=== PATIENT | female | born 1960 | race Caucasian/White ===

== ENCOUNTER 2018-03-08 16:35 | Emergency (ER) | payer OTHER ==
[2018-03-08] MEDS ORDERED: cefTRIAXone 2 GM in Sodium Chloride 0.9% 100 ML IV ONE (17:08)
--- NOTE | 2018-03-08 17:14 | EDM.PDOC ---
ED HPI GENERAL MEDICAL PROBLEM - General Chief Complaint: General Stated Complaint: FACIAL PAIN Time Seen by Provider: 03/08/18 17:05 Source of Information: Reports: Patient, Family (parents) History Limitations: Reports: No Limitations - History of Present Illness INITIAL COMMENTS - FREE TEXT/NARRATIVE: 57-year-old female presents to the ED with left hemifacial pain. Started 2 days ago with pain up underneath her permanent denture or at least partial plate of the left upper maxilla. Since then pain is gradually increasing and now left nav-face is become more swollen and painful. She was seen in the walk-in clinic earlier this morning and placed on clindamycin 450 mg 3 times a day and Tylenol No. 3. She received Toradol shot for pain relief with good relief earlier today. Onset: Gradual (Over the last 3 days) Onset Date: 03/05/18 Duration: Day(s): Location: Reports: Face (Left nav-face left maxilla.) Quality: Reports: Ache, Burning, Throbbing Severity: Moderate (Rates pain as 7 or 8 out of 9 out of 10.) Improves with: Reports: None, Medication (Toradol shot IM this morning helped with the pain) Worsens with: Reports: Other (Touch her trying to chew on that side.) Context: Denies: Activity, Exercise, Lifting, Sick Contact, Trauma, Other Associated Symptoms: Reports: Nausea/Vomiting (Mild nausea). 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: Other (see below) (Received Toradol 60 mg IM at the clinic earlier this morning.) Left Face Pain Score (Numeric/FACES): 9 - Related Data Allergies Allergy/AdvReac Type Severity Reaction Status Date / Time amoxicillin [From Augmentin] Allergy Rash Verified 03/08/18 16:52 clavulanic acid Allergy Rash Verified 03/08/18 16:52 [From Augmentin] Home Meds: Home Meds Acetaminophen with Codeine [Tylenol with Codeine #3 Tablet] 1 tab PO Q6H PRN 09/25 [History] Clindamycin HCl [Cleocin HCl] 450 mg PO TID 03/08/18 [History] Doxycycline [Vibramycin] 100 mg PO BID #20 tab 03/08/18 [Rx] Ondansetron HCl [Zofran] 4 mg PO Q6H PRN 03/08/18 [History] amLODIPine [Norvasc] 5 mg PO DAILY 03/08/18 [History] oxyCODONE HCl/Acetaminophen [Percocet 5-325 mg Tablet] 1 - 2 each PO Q4H PRN # 18 tablet 03/08/18 [Rx] Past Medical History Cardiovascular History: Reports: Hypertension Social & Family History - Tobacco Use Smoking Status *Q: Never Smoker - Caffeine Use Caffeine Use: Reports: Coffee, Tea - Recreational Drug Use Recreational Drug Use: No - Living Situation & Occupation Living situation: Reports: Single Occupation: Employed ED ROS GENERAL - Review of Systems Review Of Systems: See Below Constitutional: Reports: Chills, Malaise (Starting just now.), Fatigue, Decreased Appetite. Denies: Fever HEENT: Reports: Ear Pain (Pain is referred to her left ear), Glasses, Nose Pain , Other. Denies: Contact Lenses, Sinus Problem, Throat Pain, Throat Swelling Respiratory: Reports: No Symptoms (Left nav-facial swelling and pain) Cardiovascular: Reports: Blood Pressure Problem Endocrine: Reports: No Symptoms GI/Abdominal: Reports: Nausea : Reports: No Symptoms Musculoskeletal: Reports: No Symptoms Skin: Reports: Other (Swelling and erythema left nav-face) Neurological: Reports: No Symptoms Psychiatric: Reports: No Symptoms Hematologic/Lymphatic: Reports: No Symptoms ED EXAM, GENERAL - Physical Exam Exam: See Below Exam Limited By: No Limitations General Appearance: Alert, Mild Distress, Other (Obvious swelling left nav- face with erythema and increased warmth to palpation) Eye Exam: Bilateral Eye: Normal Inspection, PERRL Ears: Normal TMs Throat/Mouth: Normal Inspection, Normal Oropharynx, Other (There is pain to palpation with a tongue blade to her dental plate. She's not able to remove it is apparently it's a permanent structure anchored to a crowned tooth. He also has a dental implant as one of the teeth in the plate.) Head: Facial Swelling, Facial Tenderness (She has left hemifacial swelling and erythema and tenderness over the maxillary sinus.), Sinus Tenderness (Left maxillary sinus.) Neck: Normal Inspection, Supple, Non-Tender, Full Range of Motion. No: Lymphadenopathy (L), Lymphadenopathy (R) Respiratory/Chest: No Respiratory Distress, Lungs Clear, Normal Breath Sounds, No Accessory Muscle Use, Chest Non-Tender Cardiovascular: Regular Rate, Rhythm, No Edema, No Gallop, No Rub, Other (He is currently hypertensive at the time of exam.) Course - Vital Signs Last Recorded V/S: Last Vital Signs Temp 37.6 C 03/08/18 17:54 Pulse 88 03/08/18 17:18 Resp 16 03/08/18 17:18 BP 166/91 H 03/08/18 17:18 Pulse Ox 96 03/08/18 17:18 - Orders/Labs/Meds Orders: Active Orders 24 hr Category Date Time Status Maxillofacial w/o CM [Max Facial Sinus wo Cont] [CT] Exams 03/08/18 17:08 Taken Stat Dextrose 5%-0.9% NaCl [Dextrose 5%-Normal Saline] 1,000 Med 03/08/18 17:15 Active ml IV ASDIRECTED Ketorolac [Toradol] Med 03/08/18 17:30 Active 30 mg IVPUSH ONETIME Medication Orders Dextrose/Sodium Chloride (Dextrose 5%-Normal Saline) 1,000 mls @ 999 mls/hr IV ASDIRECTED MANISH Last Admin: 03/08/18 17:30 Dose: 999 mls/hr Ketorolac Tromethamine (Toradol) 30 mg IVPUSH ONETIME MANISH Last Admin: 03/08/18 17:46 Dose: 30 mg Labs: Laboratory Tests 03/08/18 03/08/18 Range/Units 17:24 17:24 WBC 8.40 (3.98-10.04) K/mm3 RBC 4.89 (3.98-5.22) M/mm3 Hgb 13.8 (11.2-15.7) gm/L Hct 41.1 (34.1-44.9) % MCV 84.0 (79.4-94.8) fl MCH 28.2 (25.6-32.2) pg MCHC 33.6 (32.2-35.5) g/dl RDW Std Deviation 39.2 (36.4-46.3) fL Plt Count 265 (182-369) K/mm3 MPV 9.9 (9.4-12.3) fl Neutrophils % (Manual) 67 H (40-60) % Band Neutrophils % 0 (0-10) % Lymphocytes % (Manual) 19 L (20-40) % Atypical Lymphs % 0 % Monocytes % (Manual) 6 (2-10) % Eosinophils % (Manual) 0 L (0.7-5.8) % Basophils % (Manual) 8 H (0.1-1.2) Platelet Estimate Adequate RBC Morph Comment Normal C-Reactive Protein 6.9 H* (<1.0) mg/dL Meds: Medications Generic Name Dose Route Start Last Admin Trade Name Freq PRN Reason Stop Dose Admin Dextrose/Sodium Chloride 1,000 mls @ 999 mls/hr 03/08/18 17:15 03/08/18 17:30 Dextrose 5%-Normal Saline IV 999 mls/hr ASDIRECTED MANISH Administration Ketorolac Tromethamine 30 mg 03/08/18 17:30 03/08/18 17:46 Toradol IVPUSH 30 mg ONETIME MANISH Administration Discontinued Medications Generic Name Dose Route Start Last Admin Trade Name Freq PRN Reason Stop Dose Admin Acetaminophen 975 mg 03/08/18 17:42 03/08/18 17:54 Tylenol PO 03/08/18 17:43 975 mg NOW ONE Administration Hydromorphone HCl 0.5 mg 03/08/18 17:29 03/08/18 17:44 Dilaudid IVPUSH 03/08/18 17:30 0.5 mg ONETIME ONE Administration Ceftriaxone Sodium 2 gm/ 100 mls @ 100 mls/hr 03/08/18 17:08 03/08/18 17:30 Sodium Chloride IV 03/08/18 18:07 100 mls/hr ONETIME ONE Administration Ondansetron HCl 4 mg 03/08/18 17:29 03/08/18 17:48 Zofran IVPUSH 03/08/18 17:30 4 mg ONETIME ONE Administration - Radiology Interpretation Free Text/Narrative:: 57-year-old female presents to the ED with gradually worsening pain left upper maxilla area. She has a permanent partial plate in this area anchored around a dental implant and a molar tooth that is a crown. Somewhere within this is a dental infection that is spreading up into her left maxilla and now left hemifacial swelling is developing due to cellulitis. I cannot visualize which area is causing the infection although I would be suspicious that the crown is loosened on the crown tooth and has acted as a portal of entry for infection. She was seen in the walk-in clinic and placed on clindamycin 450 mg 3 times a day earlier today however the face has become much more swollen and painful over the last 6 hours. She was given Tylenol 3 which is not helping the pain at all. She has an associated mild nausea. She started to feel like she's developing a fever with some chills. Plan IV Rocephin 2 g IV. Will give Toradol 30 mg IV with Dilaudid 0.5 mg IV and Zofran 4 mg IV for acute pain relief. CT of the maxillofacial sinuses will be done as well to see if we can find a portal of entry for this infection. - Re-Assessments/Exams Free Text/Narrative Re-Assessment/Exam: 03/08/18 17:42 patient is becoming more febrile. We'll give her Tylenol 975 mg by mouth for fever relief. 03/08/18 17:56 CT of the maxillofacial bones reveals extensive maxillary sinusitis with about 75% of the sinus occluded with purulent material. It's unclear whether or not a dental infection as the cause of this. The there are roots traveling up to the floor of the sinus. I do not see any evidence of recurrent infection however. Therefore current treatment plan will be continued. I will add doxycycline 100 mg twice daily to her treatment plan as well as continuing the gentamicin 3 times daily for 7 days. I will also change her pain medicine to Percocet 5/325 milligrams strength one or 2 every 4-6 hours 16 tablets. 03/08/18 19:08 feeling much improved much less pain. She has completed her 2 g of Rocephin intravenously. She will therefore be discharged at this time. Advised only want from the clindamycin for 50 mg 3 times daily for 7 days not 10 so that it minimizes the chance of developing C. difficile enteritis. I'm also going to place her on doxycycline 100 mg twice daily for 10 days this will be through the [employer] machine. She will also discontinue her Tylenol No. 3 since it is not effective in terms of controlling her pain. It will be replaced with Percocet 5/325 milligrams tabs one or 2 every 4-6 hours for pain relief as needed. She can also use Motrin 600 mg every 6 hours for pain relief and reduction of inflammation. CT report. Again it's unclear whether or not dental infection initiated the sinus disease and the cellulitis of her left nav-face. Departure - Departure Time of Disposition: 19:12 Disposition: Home, Self-Care 01 Condition: Fair Clinical Impression: Cellulitis of face Maxillary sinusitis, acute Qualifiers: Recurrence: non-recurrent Qualified Code(s): J01.00 - Acute maxillary sinusitis , unspecified - Discharge Information Prescriptions: Doxycycline [Vibramycin] 100 mg PO BID #20 tab oxyCODONE HCl/Acetaminophen [Percocet 5-325 mg Tablet] 1 - 2 each PO Q4H PRN # 18 tablet PRN Reason: pain relief. Instructions: Cellulitis, Adult, Sinusitis, Adult, [id number] Referrals: PCP,Not In Area [Primary Care Provider] - Forms: ED Department Discharge Additional Instructions: Evaluation in the emergency room today in regards to worsening infection left side of face. Examination reveals cellulitis or spreading infection into the left facial cheek. The exact source of this infection is unclear. Since she started to notice dental pain initially it is suspect they may well be dental in origin. Of the face reveals significant maxillary sinusitis on the left side however which also could cause this cellulitis of the face. Could start by making your teeth hurt. In the ED were treated with intravenous fluids and pain medication Dilaudid 0.5 mg with Toradol 30 mg and antinausea medication Zofran 4 mg IV. You're also given initial dose of intravenous antibiotic: Rocephin 2 g to start to bring this infection under rapid control. Treatment at home is to continue the clindamycin for 50 mg 3 times daily for 7 days only. Hoping to eliminate the possibility of developing Clostridium difficile infection of the bowel which can often be associated with this antibiotic. However it is of excellent antibiotic to bring that the facial infection and potential dental infection under control. I'm also going to add a second antibiotic called doxycycline 100 mg twice daily for the next 10 days with the first tablet to be taken tonight. Discontinue the Tylenol No. 3 medication since it is been in effective in terms of controlling your pain. Replace it with Percocet 5/325 milligrams one or 2 every 4 hours as needed for pain relief. You can also use Motrin 600 mg every 6 hours as needed for fever and pain and inflammation reduction. The 2 medicines can be used together without any adverse effects. You should expect marked improvement over the next 48-72 hours with facial swelling and redness and pain improving dramatically like 90%. He will need to follow-up with her dentist when she get back home so that a panoramic x-ray can be done and he can make sure that there is no infection under your crown or dental infection that caused this problem. - My Orders Last 24 Hours: My Active Orders 03/08/18 17:08 Maxillofacial w/o CM [Max Facial Sinus wo Cont] [CT] Stat 03/08/18 17:15 Dextrose 5%-0.9% NaCl [Dextrose 5%-Normal Saline] 1,000 ml IV ASDIRECTED 03/08/18 17:30 Ketorolac [Toradol] 30 mg IVPUSH ONETIME - Assessment/Plan Last 24 Hours: My Active Orders 03/08/18 17:08 Maxillofacial w/o CM [Max Facial Sinus wo Cont] [CT] Stat 03/08/18 17:15 Dextrose 5%-0.9% NaCl [Dextrose 5%-Normal Saline] 1,000 ml IV ASDIRECTED 03/08/18 17:30 Ketorolac [Toradol] 30 mg IVPUSH ONETIME
[2018-03-08] MEDS ORDERED: Dextrose 5%-0.9% NaCl 1,000 ML IV SCH (17:15)
[2018-03-08] MEDS ORDERED: Ondansetron 4 MG/2 ML SDV IVPUSH ONE (17:29)
[2018-03-08] MEDS ORDERED: HYDROmorphone 0.5 MG/0.5 ML SYRINGE IVPUSH ONE (17:29)
[2018-03-08] MEDS ORDERED: Ketorolac 30 MG/ML SDV IVPUSH SCH (17:30)
[2018-03-08] MEDS ORDERED: Acetaminophen 325 MG Tab PO ONE (17:42)
--- NOTE | 2018-03-09 08:29 | CT ---
Maxillofacial CT Technique: Multiple axial sections were obtained from below the mandible superiorly through the frontal sinus. Intravenous contrast was not utilized. Reconstructed coronal and sagittal images were obtained. Findings: Moderate mucosal thickening is seen within the left maxillary sinus. Other sinuses are clear. No air-fluid levels are seen within the paranasal sinuses. Scattered degenerative change is seen within the apophyseal joints within the cervical spine which is most prominent at C2-C3 on the right side. Scattered lymph nodes are seen within the neck which are believed to be incidental. Small nodule is identified within the left side of the parotid salivary glands which measures approximately 6 mm. Small lymph node is seen within the right parotid salivary gland. Submandibular salivary glands appear within normal limits. Mild inflammatory change is seen within the soft tissues around the platysmas muscle within the left lower cheek. Prevertebral soft tissues are within normal limits. Epiglottis is within normal limits. Impression: 1. Small nodule within the left parotid salivary gland with differential including a small parotid tumor versus slightly enlarged lymph node. Left parotid ultrasound could be obtained to see if this finding can be seen by that modality to allow for follow-up. 2. Soft tissue swelling within the lower left cheek around the platysmas muscle. 3. Chronic appearing mucosal thickening within the left maxillary sinus. Diagnostic code #9 I agree with preliminary report from [facility], finalized at 03/08/18, 7:22 PM Central Time
== END 2018-03-08 19:37 | disposition home or self-care (01) ==
LOC: JD.ED 16:35
DX: L03.211 Cellulitis of face (principal); J01.00 Acute maxillary sinusitis, unspecified; I10 Essential (primary) hypertension; Z88.1 Allergy status to other antibiotic agents; Z79.899 Other long term (current) drug therapy
CPT/HCPCS: 36415; 70486; 85007; 85027; 86140; 96365; 96375; 99284; A9270; J0696; J1170; J1885; J2405; J7030; J7042

== ENCOUNTER 2018-03-09 09:13 | Emergency (ER) | payer OTHER ==
[2018-03-09] MEDS ORDERED: Sodium Chloride 0.9% 10 ML Syringe FLUSH PRN (09:53)
[2018-03-09] MEDS ORDERED: Metoclopramide 10 MG/2 ML SDV IVPUSH ONE (09:54)
[2018-03-09] MEDS ORDERED: cefTRIAXone 2 GM in Sodium Chloride 0.9% 100 ML IV ONE (09:54)
[2018-03-09] MEDS ORDERED: HYDROmorphone 0.5 MG/0.5 ML SYRINGE IVPUSH ONE ×2 (09:54→11:41)
[2018-03-09] MEDS ORDERED: Sodium Chloride 0.9% 1,000 ML IV SCH (10:00)
--- NOTE | 2018-03-09 10:18 | EDM.PDOC ---
<Gagan Finch - Last Filed: 03/09/18 10:20> ED HPI GENERAL MEDICAL PROBLEM - General Chief Complaint: Gastrointestinal Problem Stated Complaint: VOMITING Time Seen by Provider: 03/09/18 09:29 Source of Information: Reports: Patient, Family History Limitations: Reports: No Limitations - History of Present Illness INITIAL COMMENTS - FREE TEXT/NARRATIVE: Patient is a 57 year-old female who is presents to the ED with complaints of facial pain, nausea and vomiting. Patient was seen last evening in the ED for left facial sinusitis cellulitis and associated pain. She was given an initial dose of Rocephin 2 g and then started on clindamycin 50 mg three times daily for 7 days and doxycycline 100 mg twice daily for 10 days. For her facial pain she was treated with Dilaudid 0.5 mg and Toradol 30 mg and had good relief. However once she went back to the hotel, she states the pain medication wore off and felt like the percocet did not help. She reports feeling nauseas around midnight and tried taking the zofran but did not get relief. She has vomited a few times this morning already. She states that she cannot keep anything down and therefore not able to get her medication. She reports maxillary pain that extends to her jaw line and left ear. Unable to open mouth completely. Denies recent illness or fever. Left Face Pain Score (Numeric/FACES): 5 - Related Data Allergies Allergy/AdvReac Type Severity Reaction Status Date / Time amoxicillin [From Augmentin] Allergy Rash Verified 03/09/18 09:21 clavulanic acid Allergy Rash Verified 03/09/18 09:21 [From Augmentin] Home Meds: Home Meds Acetaminophen with Codeine [Tylenol with Codeine #3 Tablet] 1 tab PO Q6H PRN 09/25 [History] Clindamycin HCl [Cleocin HCl] 450 mg PO TID 03/08/18 [History] Doxycycline [Vibramycin] 100 mg PO BID #20 tab 03/08/18 [Rx] Ondansetron HCl [Zofran] 4 mg PO Q6H PRN 03/08/18 [History] amLODIPine [Norvasc] 5 mg PO DAILY 03/08/18 [History] oxyCODONE HCl/Acetaminophen [Percocet 5-325 mg Tablet] 1 - 2 each PO Q4H PRN # 18 tablet 03/08/18 [Rx] Past Medical History - Past Health History Medical/Surgical History: Denies Medical/Surgical History HEENT History: Reports: Sinusitis Cardiovascular History: Reports: Hypertension Social & Family History - Tobacco Use Smoking Status *Q: Never Smoker - Caffeine Use Caffeine Use: Reports: Coffee, Tea - Living Situation & Occupation Living situation: Reports: Single Occupation: Employed ED ROS GENERAL - Review of Systems Constitutional: Reports: Decreased Appetite. Denies: Fever, Chills, Fatigue HEENT: Reports: Ear Pain, Sinus Problem Respiratory: Denies: Shortness of Breath, Wheezing, Cough Cardiovascular: Denies: Chest Pain, Dyspnea on Exertion, Lightheadedness GI/Abdominal: Reports: Abdominal Pain, Decreased Appetite, Nausea, Vomiting Psychiatric: Reports: No Symptoms ED EXAM, GI/ABD - Physical Exam Exam Limited By: No Limitations General Appearance: Alert, WD/WN, No Apparent Distress Head: Atraumatic, Facial Swelling, Facial Tenderness Respiratory/Chest: No Respiratory Distress, Lungs Clear, Normal Breath Sounds, No Accessory Muscle Use, Respiratory Distress. No: Crackles, Rales, Wheezing Cardiovascular: Regular Rate, Rhythm, No Gallop, No JVD, No Murmur GI/Abdominal Exam: Normal Bowel Sounds, Soft, Non-Tender. No: Distended, Rigid Neurological: Alert, Oriented, Normal Cognition, No Motor/Sensory Deficits Psychiatric: Normal Affect, Normal Mood Skin Exam: Warm, Dry, Intact Course - Vital Signs Last Recorded V/S: Last Vital Signs Temp 98.5 F 03/09/18 09:19 Pulse 99 03/09/18 09:19 Resp 18 03/09/18 09:19 BP 148/97 H 03/09/18 09:19 Pulse Ox 95 03/09/18 09:19 - Orders/Labs/Meds Orders: Active Orders 24 hr Category Date Time Status Cardiac Monitoring [RC] . DIRECTED Care 03/09/18 09:53 Active Peripheral IV Care [RC] . DIRECTED Care 03/09/18 09:53 Active Sodium Chloride 0.9% [Normal Saline] 1,000 ml Med 03/09/18 10:00 Active IV .BOLUS Sodium Chloride 0.9% [Saline Flush] Med 03/09/18 09:53 Active 10 ml FLUSH ASDIRECTED PRN Peripheral IV Insertion Adult [OM.PC] Stat Oth 03/09/18 09:53 Ordered Medication Orders Sodium Chloride (Normal Saline) 1,000 mls @ 1,000 mls/hr IV .BOLUS MANISH Last Admin: 03/09/18 10:17 Dose: 1,000 mls/hr Sodium Chloride (Saline Flush) 10 ml FLUSH ASDIRECTED PRN PRN Reason: Keep Vein Open Last Admin: 03/09/18 10:10 Dose: 10 ml Labs: Laboratory Tests 03/09/18 03/09/18 Range/Units 10:10 10:10 WBC 9.79 (3.98-10.04) K/mm3 RBC 4.79 (3.98-5.22) M/mm3 Hgb 13.6 (11.2-15.7) gm/L Hct 40.3 (34.1-44.9) % MCV 84.1 (79.4-94.8) fl MCH 28.4 (25.6-32.2) pg MCHC 33.7 (32.2-35.5) g/dl RDW Std Deviation 39.6 (36.4-46.3) fL Plt Count 253 (182-369) K/mm3 MPV 10.1 (9.4-12.3) fl Neut % (Auto) 86.0 H (34.0-71.1) % Lymph % (Auto) 7.2 L (19.3-51.7) % [place] % (Auto) 5.5 (4.7-12.5) % Eos % (Auto) 0.8 (0.7-5.8) Baso % (Auto) 0.3 (0.1-1.2) % Neut # (Auto) 8.42 H (1.56-6.13) K/mm3 Lymph # (Auto) 0.70 L (1.18-3.74) K/mm3 [place] # (Auto) 0.54 H (0.24-0.36) K/mm3 Eos # (Auto) 0.08 (0.04-0.36) K/mm3 Baso # (Auto) 0.03 (0.01-0.08) K/mm3 Manual Slide Review Abnormal smear Sodium 142 (136-145) mEq/L Potassium 3.8 (3.5-5.1) mEq/L Chloride 106 (98-107) mEq/L Carbon Dioxide 25 (21-32) mEq/L Anion Gap 14.8 (5-15) BUN 11 (7-18) mg/dL Creatinine 1.0 (0.55-1.02) mg/dL Est Cr Clr Drug Dosing TNP Estimated GFR (MDRD) 58 (>60) mL/min BUN/Creatinine Ratio 11.0 L (14-18) Glucose 122 H (74-106) mg/dL Calcium 9.3 (8.5-10.1) mg/dL Total Bilirubin 1.2 H (0.2-1.0) mg/dL AST 38 H (15-37) U/L ALT 56 (14-59) U/L Alkaline Phosphatase 117 H (46-116) U/L Total Protein 7.0 (6.4-8.2) g/dl Albumin 3.3 L (3.4-5.0) g/dl Globulin 3.7 gm/dL Albumin/Globulin Ratio 0.9 L (1-2) Lipase 58 L (73-393) U/L Meds: Medications Generic Name Dose Route Start Last Admin Trade Name Freq PRN Reason Stop Dose Admin Sodium Chloride 1,000 mls @ 1,000 mls/hr 03/09/18 10:00 03/09/18 10:17 Normal Saline IV 1,000 mls/hr .BOLUS MANISH Administration Sodium Chloride 10 ml 03/09/18 09:53 03/09/18 10:10 Saline Flush FLUSH 10 ml ASDIRECTED PRN Administration Keep Vein Open Discontinued Medications Generic Name Dose Route Start Last Admin Trade Name Freq PRN Reason Stop Dose Admin Hydromorphone HCl 0.5 mg 03/09/18 09:54 03/09/18 10:13 Dilaudid IVPUSH 03/09/18 09:55 0.5 mg ONETIME ONE Administration Ceftriaxone Sodium 2 gm/ 100 mls @ 100 mls/hr 03/09/18 09:54 03/09/18 10:18 Sodium Chloride IV 03/09/18 10:53 100 mls/hr ONETIME ONE Administration Metoclopramide HCl 10 mg 03/09/18 09:54 03/09/18 10:16 Reglan IVPUSH 03/09/18 09:55 10 mg ONETIME ONE Administration Departure - Departure Disposition: Home, Self-Care 01 Clinical Impression: Cellulitis of face Maxillary sinusitis, acute Qualifiers: Recurrence: non-recurrent Qualified Code(s): J01.00 - Acute maxillary sinusitis , unspecified - Discharge Information Referrals: PCP,Not In Area [Primary Care Provider] - Forms: ED Department Discharge Additional Instructions: Take the medication as prescribed. Drink plenty of fluids. Put warm compresses on your face a couple times per day for 3 days. Follow up with your doctor when you get home or see another doctor sooner if you get worse. - My Orders Last 24 Hours: My Active Orders 03/09/18 09:53 Cardiac Monitoring [RC] . DIRECTED Peripheral IV Care [RC] . DIRECTED Sodium Chloride 0.9% [Saline Flush] 10 ml FLUSH ASDIRECTED PRN Peripheral IV Insertion Adult [OM.PC] Stat 03/09/18 10:00 Sodium Chloride 0.9% [Normal Saline] 1,000 ml IV .BOLUS - Assessment/Plan Last 24 Hours: My Active Orders 03/09/18 09:53 Cardiac Monitoring [RC] . DIRECTED Peripheral IV Care [RC] . DIRECTED Sodium Chloride 0.9% [Saline Flush] 10 ml FLUSH ASDIRECTED PRN Peripheral IV Insertion Adult [OM.PC] Stat 03/09/18 10:00 Sodium Chloride 0.9% [Normal Saline] 1,000 ml IV .BOLUS <Abe Campbell - Last Filed: 03/09/18 11:43> ED ROS GENERAL - Review of Systems Review Of Systems: See Below ED EXAM, GI/ABD - Physical Exam Exam: See Below Course - Re-Assessments/Exams Free Text/Narrative Re-Assessment/Exam: 03/09/18 11:38 I examined the patient myself and I agree with Chip's assessment and plan. I ordered an IV NS 1L bolus, reglan 10mg IV, rocephin 2 grams IV and labs. Her WBC was normal. Her CMP shows a glucose of 122. She feels better. Her parents and her will be traveling back to [place] today. Departure - Departure Time of Disposition: 11:45 Condition: Good
== END 2018-03-09 11:55 | disposition home or self-care (01) ==
LOC: JD.ED 09:13
DX: J01.00 Acute maxillary sinusitis, unspecified (principal); L03.211 Cellulitis of face; I10 Essential (primary) hypertension; Z79.899 Other long term (current) drug therapy; Z88.1 Allergy status to other antibiotic agents; Z88.8 Allergy status to other drugs, medicaments and biological substances
CPT/HCPCS: 36415; 80053; 83690; 85025; 96365; 96375; 96376; 99283; J0696; J1170; J2765; J7030; J7040; J7050